=== PATIENT | female | born 2005 | race Two or more races ===

== ENCOUNTER 2025-01-20 20:12 | Emergency (ER) | payer MEDICAID, OTHER ==
[~2025-01-20] VITALS: Ht 160 cm; Wt 95.3 kg
--- NOTE | 2025-01-20 21:10 | ED.PDOC ---
History of Present Illness HPI Comments 19 year old female presents to the ED for the c/c of N/V/D. Pt states that she was at home eating a chicken salad for dinner when she had a sudden onset of feeling 'Sick". Pt states that she went to the toilet when she had an episode of /D, and notes that she started feeling Dizziness and N/ shortly after. Pt notes that v/, and has been dizzy and has a diffuse CASTELLANO since with no alleviating factors at this time. Pt notes on being 30 weeks . No other associated symptoms, modifiers, recent injuries or sick contacts present at this time. Time Seen by MD: 20:52 Reviewed Notes: Nurses Notes, Medications, Allergies Allergies: Uncoded Allergies: Plums (Allergy, Mild, 01/20/25) PCN (Allergy, Unknown, 01/20/25) Home Meds Reported Medications Vit W/ Ferrous Fumara (PNV PLUS MULTIVI) Plus Tab, 2 TAB PO DAILY, TAB 01/21/25 Information Source: Patient Mode of Arrival: Ambulatory Severity: Moderate Timing: Hours Duration: Since onset, Hours Prehospital treatment: None Physical Exam General: Awake, alert and oriented. Mild distress. Skin: Skin in warm, dry and intact. Appropriate color for ethnicity. HEENT: The head is normocephalic and atraumatic. Conjunctivae are clear without exudates or hemorrhage. Sclera is non-icteric. EOM are intact. No signs of nystagmus. Eyelids are normal in appearance without swelling or lesions. Oral mucosa is pink and moist Neck: The neck is supple with normal range of motion. No JVD. Cardiac: Heart rate and rhythm are normal. No murmurs, gallops, or rubs are auscultated. Respiratory: No signs of respiratory distress. Lung sounds are clear in all lobes bilaterally without rales, rhonchi, or wheezes. Abdominal: Abdomen is soft, non-tender without distention, guarding or rigidity. Bowel sounds are present and normoactive in all four quadrants. Gravid Abdomen, no CVA tenderness. Extremities: Upper and lower extremities are atraumatic in appearance without deformity or edema. Neurological: The patient is awake, alert and oriented to person, place, and time with normal speech. Speech is clear. There is no facial asymmetry. Psychiatric: Appropriate mood and affect. Good judgement and insight. Review of Systems: REVIEW OF SYSTEMS: No fever, no chills, or fatigue HEENT: No sore throat, no earache, no congestion, no neck pain. Cardiac: No chest pain. No palpitations. Lungs: No shortness of breath, no cough. GI: + nausea, + vomiting, + diarrhea, no constipation, + abdominal pain : No dysuria, frequency, or urgency. No hematuria. Musculoskeletal: No joint pain , no joint swelling, no extremity edema. Skin: No rash, no itching. Neuro: No headache, + dizziness, no weakness Past Medical History PAST MEDICAL HISTORY: Denies Surgical History: Denies all surgeries SENIOR PRODUCT DEVELOPMENT SCIENTIST History: No Pertinent SENIOR PRODUCT DEVELOPMENT SCIENTIST History Family History Family History: Reviewed,noncontributory to illness, No family hx of Cancer, No family hx of DM, No family hx of Heart wlida, No family hx of HTN, No family hx ofKidney wilda, No family hx of Liver wilda, No family hx of Lung wilda, No family hx of Stroke Social History Smoker: Non-Smoker Alcohol: Denies ETOH Use Drugs: Denies Drug Use Lives In: Home Was a procedure done? Was a procedure done?: No Differential Dx Considerations may include: Gastritis, gastroenteritis, food poisoning, hypovolemia, urinary tract infection, pancreatitis, cholecystitis, nausea and vomiting of , dehydration, other X-Ray, Labs, Meds, VS Lab Test 01/20/25 21:00 Range/Units Urine Color Yellow Yellow Urine Clarity Turbid H Clear Urine pH 6.5 5.0-9.0 Urine Specific [place] 1.022 1.001-1.035 Urine Protein Trace H Negative Urine Ketones 1+ H Negative Urine Blood Negative Negative /uL Urine Nitrite Negative Negative Urine Bilirubin Negative Negative Urine Urobilinogen Normal Negative mg/dL Urine Leukocyte Esterase 2+ Negative /uL Urine RBC 2 0 - 4 /hpf Urine Microscopic WBC 6 H 0-5 /HPF Urine Squamous Epithelial Cells Mod <5 /hpf Urine Bacteria None seen None Seen /hpf Urine Glucose Normal Normal mg/dL Time of 1ST Reevaluation: 21:26 Reevaluation 1ST: Unchanged Patient Education/Counseling: Need For Follow Up Family Education/Counseling: No Family Present Departure 1 Departure Time of Disposition: 23:03 Impression: Primary Impression: Nausea and vomiting during Disposition: 01 HOME / SELF CARE / HOMELESS Condition: Stable Comments Patient was seen and evaluated in the ED triage area. She was transferred to L and D, evaluated and discharged from the L and D unit. Critical Care Note Critical Care Time?: No Stability Stability form required: No Heart Score Heart Score: Heart Score Response (Comments) Value History N/A 0 EKG N/A 0 Age N/A 0 Risk Factors N/A 0 Troponin N/A 0 Total 0 I personally scribed for SUSAN KEMP MD ([email or web address]) on 01/20/25 at 21:10. Electronically submitted by Eric Bruce ([email or web address]). SUSAN KEMP MD Jan 20, 2025 21:10
[2025-01-20 21:28] LABS: Urine Bacteria None Seen /hpf (None Seen)
[2025-01-20 21:40] LABS: Urine Blood Negative /uL (Negative); Urine Clarity Turbid (Clear); Urine Color Yellow (Yellow); Urine Protein, UAD TRACE (Negative); Urine Specific Gravity 1.022 (1.001-1.035); Urine Squamous Epithelial Cell MOD /hpf (<5); Urine Urobilinogen Normal (Negative); Urine WBC 6 /HPF (0-5); Urine pH 6.5 (5.0-9.0)
--- NOTE | 2025-01-20 22:33 | DVH ---
OB ULTRASOUND, LIMITED CLINICAL INDICATION: Nausea, vomiting, abdominal pain, decreased movement TECHNIQUE: Multiple grayscale ultrasound and M-mode images were obtained of the pelvis for evaluation of intrauterine . COMPARISON: None FINDINGS: A single living fetus is seen in cephalic presentation. Biparietal diameter: 8.03 cm (32 weeks, 2 days) Head Circumference: 29.01 cm (32 weeks, 0 days) Abdomen Circumference: 29.01 cm (33 weeks, 0 days) Femur Length: 5.68 cm (29 weeks, 6 days) Estimated weight: 1860 grams (+/- 279 grams). Placenta: Anterior, grade 0. Amniotic fluid: Visibly normal. EMMA 13.02 cm heart rate: 145 beats/min. A complete anatomic survey was not performed on this exam. IMPRESSION: Single living intrauterine with an estimated gestational age of 31 weeks, 6 days, corresp onding to an estimated date of delivery of 03/18/2025.
[2025-01-20] MEDS: LACTATED RINGER'S 1,000 ML IV ONE (22:45)
[2025-01-20] MEDS: ONDANSETRON HCL 4 MG/2 ML VIAL IV ONE (23:00)
--- NOTE | 2025-01-20 23:03 | DVHDS2 ---
Physician Discharge Progress N Final Diagnosis: PTL N/V and diarrhea in Operations or Procedures: Operations or Procedures S: 19yo , IUP @ 30.4 wks presents to OB Triage c/o nausea, vomiting, and diarrhea that occurred a couple of hours after eating a chicken salad at home. Pt reports she had diarrhea x4 prior to arriving in triage. Pt denies CASTELLANO/vision changes/RUQ pain/VB/LOF. Endorses +FM in OB triage, but DFM before she got here. +UCs. PNC with Dr Esther Loredo, per pt is uncomplicated thus far, no records available. O: VSS NST: reactive TOCO: regular UCs initially then after treatment NO UCs noted, pt denies feeling UCs prior to D/C. 2L LR IV fluid bolus, Zofran IV, Terbutaline sq x3 given A: 19yo , IUP @ 30.4 wks PTL N/V and diarrhea in P: D/C home Follow-up with primary OB as scheduled on 01/21/25 and discuss PTL in OB triage. Discussed BRAT diet for diarrhea Pelvic rest recommended FKC and Preeclampsia warning signs reviewed. PTL precautions given and when to return to the hospital. Other Interventions Other Interventions [place] [address] Ph: [phone] DIAGNOSTIC IMAGING Diagnostic Imaging Report : [id number] Signed PATIENT: GONZALO MARCUM ACCT: [id number] UNIT: [id number] : 2005 LOC: [facility] ROOM / BED: TRIAGE1 / A AGE / SEX: 19 / F ADM STATUS: ADM IN SERVICE 53 ORDERING PHYSICIAN: SUSAN KEMP MD PROCEDURE(s): OBUS - OB ULTRASOUND COMP GTR 14 WKS REASON: Nausea, vomiting, abdominal pain, decreased movement ORDER NUMBER(s): [id number], ACCESSION NUMBER(s): [id number] OB ULTRASOUND, LIMITED CLINICAL INDICATION: Nausea, vomiting, abdominal pain, decreased movement TECHNIQUE: Multiple grayscale ultrasound and M-mode images were obtained of the pelvis for evaluation of intrauterine . COMPARISON: None FINDINGS: A single living fetus is seen in cephalic presentation. Biparietal diameter: 8.03 cm (32 weeks, 2 days) Head Circumference: 29.01 cm (32 weeks, 0 days) Abdomen Circumference: 29.01 cm (33 weeks, 0 days) Femur Length: 5.68 cm (29 weeks, 6 days) Estimated weight: 1860 grams (+/- 279 grams). Placenta: Anterior, grade 0. Amniotic fluid: Visibly normal. EMMA 13.02 cm heart rate: 145 beats/min. A complete anatomic survey was not performed on this exam. IMPRESSION: Single living intrauterine with an estimated gestational age of 31 weeks, 6 days, corresponding to an estimated date of delivery of 03/18/2025. ATED BY: ONUR NARAYANAN MD DICTATED DATE/TIME: 01/20/252229 SIGNED BY: ONUR NARAYANAN MD SIGNED DATE/TIME: 01/20/252229 CC: Condition on Discharge: Stable Disposition: Home Discharge Instructions: Diet: Regular Activity: See Comment Activity comment: pelvic rest Medications: see med list Follow Up Care: Specialist: Follow-up with primary OB as scheduled on 01/21/25 and discuss PTL in OB triage. Discharge Statement: "Patient was advised to return to the ER or call 911 if any headaches, dizziness, shortness of breath, chest pain, abdominal pain, bleeding, fevers, or worsening of medical condition. Patient was counseled about treatment plan, medications, possible side effects, patientverbalized understanding. All questions were answered to the best of my ability. This discharge took greater then 30 minutes in planning, reviewing documentation, counseling the patient, and discussing with other team members." Visit Coding OBGYN Date of Service: Jan 21, 2025 Billing Provider: ALEE FLORIAN CNM POLYSOMNOGRAPHIC TECH Common Visit Codes: 89648-JTRLXZL OBS CARE (HIGH) POLYSOMNOGRAPHIC TECH Procedure Codes: 26965-31- NON-STRESS TEST LEONARD FOFANA Jan 20, 2025 23:03
[2025-01-20] MEDS: LACTATED RINGER'S 1,000 ML IV STA (23:46)
[2025-01-21] MEDS ORDERED: PREN1TAB71 PO (00:34)
[2025-01-21] MEDS: TERBUTALINE SULFATE 1 MG/ML 1ML VIAL SC STA (00:50)
[2025-01-21] MEDS: TERBUTALINE SULFATE 1 MG/ML 1ML VIAL SC ONE (01:13)
[2025-01-21] MEDS: LOPERAMIDE HCL 2 MG CAP/TAB PO PRN (03:49)
== END 2025-01-21 02:38 | disposition home or self-care (01) ==
LOC: ER 20:12 → LDRP 21:04
PROVIDERS: ADMIT Obstetrics & Gynecology; ATTEND Obstetrics & Gynecology
DX: O60.03 Preterm labor without delivery, third trimester (principal); O21.2 Late vomiting of pregnancy; O23.43 Unspecified infection of urinary tract in pregnancy, third trimester; N39.0 Urinary tract infection, site not specified; O26.613 Liver and biliary tract disorders in pregnancy, third trimester; K81.9 Cholecystitis, unspecified; O36.8130 Decreased fetal movements, third trimester, not applicable or unspecified; O99.613 Diseases of the digestive system complicating pregnancy, third trimester; K29.70 Gastritis, unspecified, without bleeding; A05.9 Bacterial foodborne intoxication, unspecified; O99.283 Endocrine, nutritional and metabolic diseases complicating pregnancy, third trimester; E86.0 Dehydration; K85.90 Acute pancreatitis without necrosis or infection, unspecified; Z3A.30 30 weeks gestation of pregnancy; Z79.899 Other long term (current) drug therapy; Z98.890 Other specified postprocedural states
CPT/HCPCS: 59025; 76805; 81001; 81002; 94762; 96361; 96372; 96374; 99284; G0378; J2405; J3105; 96360